=== PATIENT | male | born 1965 | race Two or more races ===

== ENCOUNTER 2019-05-19 07:49 | Emergency (ER) | payer OTHER ==
[~2019-05-19] VITALS: Ht 165.1 cm; Wt 100.0 kg
[~2019-05-19 07:49] MED LIST: AMLO5TAB9 PO; INSU100I21 SQ; INSU3INS5 SQ; LISI-660 PO; LISI1TAB11 PO
[2019-05-19 08:09] LABS: GLUCOSE,POINT OF CARE 232 MG/DL (70-110)
[2019-05-19] MEDS ORDERED: MORPHINE SULFATE 4 MG/ML SYRINGE IVP ONE ×2 (08:15→09:45)
[2019-05-19 08:40] LABS: BASOPHILS % (AUTO) 0.6 % (0.0-2.0); EOSINOPHILS % (AUTO) 2.6 % (1.0-6.0); HEMATOCRIT 42.2 % (41-53); LYMPHOCYTES # (AUTO) 2.3 K/uL (1.0-4.8); LYMPHOCYTES % (AUTO) 36.3 % (22.0-44.0); MEAN CORPUSCULAR HEMOGLOBIN 32.5 pg (26.0-34.0); MEAN CORPUSCULAR VOLUME 98 fL (80-100); MONOCYTES # (AUTO) 0.6 K/uL (0.1-1.0); MONOCYTES % (AUTO) 9.2 % (2.0-9.0); NEUTROPHILS # (AUTO) 3.2 K/uL (1.8-7.7); NEUTROPHILS % (AUTO) 51.3 % (40.0-70.0); PLATELET COUNT (AUTO) 296 K/uL (150-450); RED CELL DISTRIBUTION WIDTH 13.4 % (11.5-14.5)
[2019-05-19 08:50] LABS: CALCIUM, TOTAL 8.4 mg/dL (8.8-10.5); CREATININE 1.45 mg/dL (0.60-1.30)
[2019-05-19 08:56] LABS: ALBUMIN 3.4 g/dL (3.4-5.0); BILIRUBIN,TOTAL 0.5 mg/dL (0.1-1.0); TOTAL PROTEIN, SERUM 7.4 g/dL (6.4-8.2)
[2019-05-19] MEDS ORDERED: KETOROLAC TROMETHAMINE 30 MG/ML VIAL IVP ONE (09:45)
[2019-05-19 10:00] VITALS: BP 120/71
== END 2019-05-19 10:13 | disposition home or self-care (01) ==
LOC: EMS 07:50
DX: R07.81 Pleurodynia (principal); E11.9 Type 2 diabetes mellitus without complications; I10 Essential (primary) hypertension; Z79.899 Other long term (current) drug therapy; Z79.4 Long term (current) use of insulin
CPT/HCPCS: 36415; 71045; 80053; 82962; 83690; 84484; 85025; 85379; 93005; 96374; 96375; 96376; 99285; J1885; J2270

== ENCOUNTER 2024-06-11 16:03 | Emergency (ER) | payer OTHER ==
[~2024-06-11] VITALS: Ht 167.6 cm; Wt 90.9 kg
[~2024-06-11 16:03] MED LIST changes: +AMLO-257 PO; -AMLO5TAB9 PO; -INSU100I21 SQ; +INSU100I22 SQ; -LISI-660 PO; +LISI-892 PO
[2024-06-11 16:17] VITALS: TEMP 98
[2024-06-11] MEDS: METHOCARBAMOL 500 MG TABLET PO ONE (18:24)
[2024-06-11] MEDS: HYDROCODONE/ACETAMINOPHEN 5-325 MG TABLET PO ONE (18:25)
[2024-06-11] MEDS: KETOROLAC TROMETHAMINE 60 MG/2 ML VIAL IM ONE (18:25)
[2024-06-11 21:15] VITALS: BP 142/89; PULSE 93; RESP 18
[2024-06-11] MEDS: HYDROmorphone HCL 2 MG/ML SYRINGE IM ONE (22:28)
[2024-06-11] MEDS: ONDANSETRON HCL 4 MG/2 ML VIAL IM ONE (22:31)
[2024-06-11 23:10] LABS: BASOPHILS % (AUTO) 0.3 % (0.0-2.0); EOSINOPHILS % (AUTO) 5.1 % (1.0-6.0); HEMATOCRIT 38.2 % (41-53); HEMOGLOBIN 12.7 g/dL (13.5-17.5); LYMPHOCYTES # (AUTO) 2.6 K/uL (1.0-4.8); MEAN CORPUSCULAR HEMOGLOBIN 32.6 pg (26.0-34.0); MEAN CORPUSCULAR HGB CONC 33.3 G/dL (31.0-37.0); MEAN CORPUSCULAR VOLUME 98 fL (80-100); MONOCYTES # (AUTO) 0.8 K/uL (0.1-1.0); NEUTROPHILS % (AUTO) 51.6 % (40.0-70.0); PLATELET COUNT (AUTO) 292 K/uL (150-450); RED CELL DISTRIBUTION WIDTH 13.6 % (11.5-14.5); WHITE BLOOD COUNT (AUTO) 7.8 K/uL (4.5-11.0)
[2024-06-11 23:11] LABS: CALCIUM, TOTAL 8.7 mg/dL (8.8-10.5); CREATININE 1.41 mg/dL (0.60-1.30); POTASSIUM 4.4 mmol/L (3.5-5.1)
[2024-06-11 23:44] LABS: APPEARANCE,URINE CLEAR (CLEAR); BILIRUBIN,URINE NEGATIVE (NEGATIVE); COLOR,URINE LIGHT YELLOW (YELLOW); GLUCOSE, URINE (UA) TRACE mg/dL (NEGATIVE); KETONES,URINE NEGATIVE (NEGATIVE); LEUKOCYTE ESTERASE ,URINE NEGATIVE (NEGATIVE); NITRATE,URINE NEGATIVE (NEGATIVE); OCCULT BLOOD,URINE NEGATIVE (NEGATIVE); PH,URINE 5.5 (5.0-8.0); PROTEIN,URINE 30-70 mg/dL (NEGATIVE); SPECIFIC GRAVITIY, URINE 1.022 (1.003-1.030); UROBILINOGEN,URINE <=1.0 mg/dL (<=1.0)
[2024-06-11 23:48] LABS: BACTERIA,URINE Few /HPF (None Seen); RBC,URINE 0-2 /HPF (0-2); WBC,URINE 0-2 /HPF (0-5)
[2024-06-12] MEDS: LIDOCAINE 5% TRANSDERMAL PATCH TD ONE (00:24)
[2024-06-12] MEDS ORDERED: METH-659 PO (00:53)
[2024-06-12] MEDS ORDERED: PERCT PO (00:53)
[2024-06-12] MEDS ORDERED: LIDO1ADH23 TP (00:53)
[2024-06-12] MEDS ORDERED: IBUP-1492 PO (00:53)
== END 2024-06-12 01:19 | disposition home or self-care (01) ==
LOC: EDUNIT# 16:03 → EMS 16:03
DX: S39.012A Strain of muscle, fascia and tendon of lower back, initial encounter (principal); M54.32 Sciatica, left side; I10 Essential (primary) hypertension; Z79.4 Long term (current) use of insulin; W19.XXXA Unspecified fall, initial encounter; Y93.89 Activity, other specified; Y92.89 Other specified places as the place of occurrence of the external cause; Y99.8 Other external cause status
CPT/HCPCS: 99285; 73700; 80048; 81001; 83690; 85025; 36415; 72100; 96372; J1170; J1885; J2405